=== PATIENT | female | born 1975 | race Caucasian/White ===

== ENCOUNTER 2024-04-16 14:34 | Emergency (ER) | payer BC, OTHER ==
[2024-04-16 14:44] VITALS: BP 127/95; PULSE 86; RESP 18; TEMP 98.1; BMI 22.4
[2024-04-16] MEDS ORDERED: DIPHTH,PERTUSS(ACELL),TET 0.5 ML DISP.SYRIN IM ONE (15:30)
[2024-04-16] MEDS: DIPHTH,PERTUSS(ACELL),TET 0.5 ML DISP.SYRIN IM ONE (15:33)
== END 2024-04-16 15:43 | disposition home or self-care (01) ==
LOC: FER 14:34
PROC: 3E0234Z Introduction of Serum, Toxoid and Vaccine into Muscle, Percutaneous Approach (ICD-10-PCS; principal; 2024-04-16)
PROC: 0HQGXZZ Repair Left Hand Skin, External Approach (ICD-10-PCS; 2024-04-16)
DX: S61.211A Laceration without foreign body of left index finger without damage to nail, initial encounter (principal); W27.2XXA Contact with scissors, initial encounter; Z23 Encounter for immunization
CPT/HCPCS: 12001-25; 90471; 90715; 99284-25